=== PATIENT | male | born 1965 | race Caucasian/White ===

== ENCOUNTER 2024-04-24 09:44 | Emergency (ER) | payer BC, SELFPAY ==
[2024-04-24 09:46] VITALS: BP 113/80
[2024-04-24] MEDS: TYLENOL 1000 MG PO (09:55)
[2024-04-24 10:26] LABS: COVID-19 Antigen Negative (Negative)
--- NOTE | 2024-04-24 11:04 | ED.GENMED ---
History of Present Illness
General
Chief Complaint: Cold/Flu/URI Symptoms
Source: patient
Exam Limitations: none
Time Seen by Provider: 04/24/24 10:48
History of Present Illness
History of Present Illness:
58-year-old male presents with 2 days worth of congestion cough fever fatigue headache and brain fog. There has been no vomiting or diarrhea. She denies a rash. Headache is diffuse. He denies neck pain. He tested for COVID and flu at home which
was negative. No other complaints at this time
Phy Exam
Physical Exam
Physical Exam:
General: Well-appearing male no acute respiratory distress
HEENT: Normocephalic mucosa dry posterior pharynx without erythema or exudate neck supple
Heart: Tachycardic but regular lungs: Clear no obvious wheeze or rales
Abdomen is soft nontender nondistended no guarding rebound
Extremities: No cyanosis
Sepsis
Sepsis Screening
Sepsis Assessment: Sepsis Ruled Out
Sepsis Screen
Sepsis Screen: Sepsis Ruled Out
Date: 04/24/24
Time: 14:04
Course
Orders/Labs/Results
Orders:
Orders
04/24/24 09:46
CXR2 [CR Chest - 2 Views ] Urgent
Comment:
Reason For Exam: cough
04/24/24 09:51
Electrocardiogram (*1) Urgent
Reason for Study: Tachycardia
EKG- Treatment ONCE
04/24/24 09:53
Acetaminophen [Tylenol] 1,000 mg .ROUTE .STK-MED ONE
04/24/24 09:54
Acetaminophen [Tylenol] 1,000 mg PO NOW STA
04/24/24 10:00
COVID-19 Antigen Urgent
Source: Nasal Swab
Influenza A+B Rapid Molecular Urgent
PREMA Source: Nasal Swab
Specimen Description:
04/24/24 11:02
0.9% Sodium Chloride 1000 ml [Nss] 1,000 ml IV BOLUS
04/24/24 11:17
Complete Blood Count/With Diff Urgent
Comprehensive Metabolic Panel Urgent
Lactic Acid Q4H
Comment: CANCEL 2nd LACTIC ACID IF 1st LACTIC ACID IS LESS THAN 2
Blood Culture Q30M
PREMA Source: Blood/Venous
Specimen Description:
Blood Culture Q30M
PREMA Source: Blood/Venous
Specimen Description:
04/24/24 11:43
Influenza A+B Rapid Molecular Urgent
PREMA Source: Nasal Swab
Specimen Description:
04/24/24 12:47
0.9% Sodium Chloride 1000 ml [Nss] 1,000 ml IV BOLUS
Ibuprofen [Motrin] 600 mg PO NOW STA
04/24/24 15:15
Lactic Acid Q4H
Comment: CANCEL 2nd LACTIC ACID IF 1st LACTIC ACID IS LESS THAN 2
Abnormal Lab Results
04/24/24
11:17
Absolute Neuts (auto) 8.0 H 10^3/uL
(1.4-6.5)
Absolute Lymphs (auto) 0.5 L 10^3/uL
(1.2-3.4)
Absolute Monos (auto) 1.0 H 10^3/uL
(0.1-0.6)
Neutrophils % 83.1 H %
(42.2-75.2)
Lymphocytes % 5.6 L %
(20.5-51.1)
Monocytes % 10.4 H %
(1.7-9.3)
Sodium 133 L mmol/L
(135-145)
Carbon Dioxide 19 L mmol/L
(22-30)
Glucose 119 H mg/dl
(70-99)
Lactic Acid 0.6 L mmol/L
(0.7-2.0)
Total Protein 6.2 L g/dl
(6.3-8.2)
04/24/24 11:17
04/24/24 11:17
Vital Signs
Initial and Last Documented VS:
Initial Vital Signs
Temp Pulse Resp BP Pulse Ox
103.0 F H 128 20 113/80 100
04/24/24 09:46 04/24/24 09:46 04/24/24 09:46 04/24/24 09:46 04/24/24 09:46
Last Documented Vital Signs
Temp Pulse Resp BP Pulse Ox
100.5 F H 128 16 113/68 96
04/24/24 11:53 04/24/24 09:46 04/24/24 11:53 04/24/24 11:35 04/24/24 11:53
MDM/Problems Addressed
Differential Diagnosis Includes:
Patient with fever cough congestion. Consider viral illness such as COVID or flu versus pneumonia for sepsis or electrolyte abnormality
Check labs. COVID and flu test pending chest x-ray pending. Fluids ordered Tylenol given through triage. Patient was febrile with a temperature of 103 and tachycardic initially.
*Critical Care Note
Total Time (30-74mins, 75-104mins- exclusive of procedures): Not Applicable
Update Note
Update Note:
Patient reevaluated feeling better he received 2 L of fluid Tylenol and Motrin. Flu a test is positive. COVID-negative chest x-ray is clear. No significant electrolyte derangement. Patient did inquire about Tamiflu. Will prescribe this. Stable
for discharge with influenza.
ED Attending Note
-
Portions of this chart may have been created with voice recognition software.� Occasional wrong word or��sound alike� substitutions may have occurred due to the inherent limitations of voice recognition software.
Discharge Plan
Departure
Patient Disposition: Home (Routine Discharge)
Date of Disposition: 04/24/24
Time of Disposition: 14:00
Patient with high blood pressure during this ER visit?: No
Discharge Problem:
Influenza A
Instructions: Flu in adults - ED discharge instructions
Prescriptions:
New
oseltamivir [Tamiflu] 75 mg capsule
75 mg PO BID Qty: 10 0RF
Referrals:
Radha Farias, DO [Family Provider] -
Activity Restrictions/Additional Instructions:
Rest. Drink plenty of fluids. Continue with ibuprofen and Tylenol for fever. Use Tamiflu as directed. Return if worse otherwise
Interventions
Interventions:
*Risk Screen - Suicide Last Done: 04/24/24 09:46
*General Assessment Last Done: 04/24/24 09:46
*Neglect/Abuse Screening Last Done: 04/24/24 11:54
ED- Fall Risk Assessment Last Done: 04/24/24 11:53
*ED COVID-19 Vaccine History Last Done: 04/24/24 09:46
ED- Pulmonary Assessment Last Done: 04/24/24 11:53
Discharge Date and Time
Print Language: ARABIC
[2024-04-24 11:35] VITALS: BP 113/68
[2024-04-24 11:50] LABS: % Basophils 0.3 % (0-2); % Eosinophils 0.3 % (0-6); % Immature Granulocytes 0.3 % (0-0.5); % Lymphocytes 5.6 % (20.5-51.1); % Monocytes 10.4 % (1.7-9.3); % Neutrophils 83.1 % (42.2-75.2); Absolute Lymphocytes 0.5 10^3/uL (1.2-3.4); Hematocrit 41.2 % (39.0-52.0); Hemoglobin 14.6 g/dL (13.0-18.0); Mean Corp Hgb Conc. 35.4 g/dL (33.0-37.0); Mean Corpuscular Hgb 29.6 pg (27.0-31.0); Mean Corpuscular Volume 83.6 fL (80.0-94.0); Mean Platelet Volume 9.4 fL (7.4-10.4); Nucleated Red Blood Cells % 0 % (-); Platelet Count 153 10^3/uL (130-400); Red Blood Cell Count 4.93 10^6/uL (4.70-6.10); Red Cell Dist. Width 12.5 % (11.5-14.5); White Blood Cell Count 9.6 10^3/uL (4.8-10.8)
[2024-04-24] MEDS: NSS 1000 IV ×2 (11:56→12:56)
[2024-04-24 12:04] LABS: Lactic Acid 0.6 mmol/L (0.7-2.0)
[2024-04-24 12:07] LABS: ALT (SGPT) 17 U/L (0-50); AST (SGOT) 31 U/L (17-59); Alkaline Phosphatase 72 U/L (38-126); Blood Urea Nitrogen 11 mg/dl (9-20); Calcium 8.4 mg/dl (8.4-10.2); Carbon Dioxide 19 mmol/L (22-30); Chloride 104 mmol/L (98-107); Glucose 119 mg/dl (70-99); Potassium 3.7 mmol/L (3.5-5.1); Sodium 133 mmol/L (135-145); Total Bilirubin 0.9 mg/dl (0.2-1.3); Total Protein 6.2 g/dl (6.3-8.2); eGFR > 60.00
[2024-04-24] MEDS: MOTRIN 600 MG PO (12:53)
[2024-04-24 14:00] VITALS: BP 108/74
== END 2024-04-24 14:00 | disposition home or self-care (01) ==
LOC: EMR 09:44
PROVIDERS: Physician Assistant; EMERGENCY PHYSICIAN Emergency Medicine; FAMILY PHYSICIAN Internal Medicine
DX: J10.1 Influenza due to other identified influenza virus with other respiratory manifestations (principal); Z11.52 Encounter for screening for COVID-19
CPT/HCPCS: 99285; 96360; 96361; 71046; 80053; 83605; 85025; 87040; 87502; 87811; 93005